=== PATIENT | male | born 1960 ===

== ENCOUNTER 2020-12-31 11:45 | Day surgery (SDC) | payer BC ==
[~2020-12-31 11:45] MED LIST: Acetaminophen 1,000 MG in Premix Bag 1 BAG IV ONE; Lactated Ringers 1,000 ML IV SCH; Pregabalin 75 MG Cap PO ONE; cefOXitin 2 GM in Premix Bag 1 BAG IV ONE
[2020-12-31] MEDS ORDERED: fentaNYL 100 MCG/2 ML SDV IVPUSH PRN (11:46)
[2020-12-31] MEDS ORDERED: Naloxone 0.4 MG/ML SDV IVPUSH PRN (11:46)
[2020-12-31] MEDS ORDERED: Morphine 2 MG/ML SYRINGE IVPUSH PRN (11:46)
[2020-12-31] MEDS ORDERED: Ondansetron 4 MG/2 ML SDV IVPUSH PRN (11:46)
[2020-12-31] MEDS ORDERED: Albuterol 0.083% 2.5 MG/3 ML Neb Soln NEB PRN (11:46)
[2020-12-31] MEDS ORDERED: Metoclopramide 10 MG/2 ML SDV IVPUSH PRN (11:46)
[2020-12-31] MEDS ORDERED: HYDROmorphone 1 MG/ML Syringe IVPUSH PRN (11:46)
[2020-12-31] MEDS ORDERED: Bupivacaine Liposome 1.3% 20 ML SDV ONE (12:00)
--- NOTE | 2020-12-31 12:31 | PCM.PREANE ---
Preanesthetic Assessment - Anesthesia/Transfusion/Family Hx Anesthesia History: Prior Anesthesia Without Reaction Other Type of Anesthesia Reaction Comment: Denies any known problem in past, Adopted no known family hx Family History of Anesthesia Reaction: No Transfusion History: Prior Transfusion Without Reaction - Review of Systems General: No Symptoms Pulmonary: No Symptoms Cardiovascular: No Symptoms Gastrointestinal: No Symptoms Neurological: No Symptoms Other: Reports: None - Physical Assessment NPO Status Date: 12/31/20 NPO Status Time: 08:00 Vital Signs: Last Vital Signs Temp 97.5 F 12/31/20 12:12 Pulse 70 12/31/20 12:12 Resp 16 12/31/20 12:12 BP 120/78 12/31/20 12:12 Pulse Ox 100 12/31/20 12:12 ASA Class: 3E Mental Status: Alert & Oriented x3 Airway Class: Mallampati = 1 Dentition: Reports: Broken Tooth/Teeth, Missing Tooth/Teeth Thyro-Mental Finger Breadths: 3 Mouth Opening Finger Breadths: 3 ROM/Head Extension: Full Lungs: Clear to Auscultation Cardiovascular: Regular Rate - Allergies Allergies/Adverse Reactions: Allergies Allergy/AdvReac Type Severity Reaction Status Date / Time ibuprofen [From Motrin] Allergy Cardiac Verified 03/29/15 13:56 Arrest - Blood Blood Available: No - Acknowledgements Anesthesia Type Planned: General Anesthesia Pt an Appropriate Candidate for the Planned Anesthesia: Yes Alternatives and Risks of Anesthesia Discussed w Pt/Guardian: Yes Pt/Guardian Understands and Agrees with Anesthesia Plan: Yes PreAnesthesia Questionnaire Other HEENT History: wears glasses Other Respiratory History: Reports 35 yr history of smoking, current use 1-2 pack per day Gastrointestinal History: Reports: Cholelithiasis, Colon Polyp, Hemorrhoids, Other (See Below) Other Gastrointestinal History: Gastric Lymphoma, INcisional hernia 2 month history, denies GERD Musculoskeletal History: Reports: Back Pain, Chronic, Fracture Other Musculoskeletal History: Low back pain, HX fracture 3rd Metacarpal Left hand Other Neuro History: Insomnia Oncologic (Cancer) History: Reports: Lymphoma Other Oncologic History: 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, gastric neoplasm, hx: hyperplastic colon polyp - Past Surgical History GI Surgical History: Reports: Colon, Colonoscopy, Polypectomy Other GI Surgeries/Procedures: states has had multiple abdominal surgeries, has hx of gastrectomy for gastric lymphoma Other Neurological Surgeries/Procedures: Low back surgery Oncologic Surgical History: Reports: Other (See Below) Other Oncologic Surgeries/Procedures: Partial gastrectomy, 85% gastrecotmy with primary anastomosis, Port-a-Cath Placement - HOME MEDS Home Medications: Home Meds Cyclobenzaprine [Flexeril] 1 tab PO ASDIRECTED 02/27/15 [History] Hydrocodone/Acetaminophen [Hydrocodone-Acetamin 10-325 mg] 1 tab PO ASDIRECTED 02/27/15 [History] Zolpidem Tartrate 1 tab PO BEDTIME 02/27/15 [History] oxyCODONE HCl/Acetaminophen [Percocet 10-325 mg Tablet] 1 tab PO ASDIRECTED 02/27/15 [History] traMADol [Ultram] 1 tab PO ASDIRECTED 02/27/15 [History] - CURRENT (IN HOUSE) MEDS Current Meds: Current Medications Albuterol (Albuterol 0.083% 2.5 Mg/3 Ml Neb Soln) 2.5 mg NEB ONETIME PRN PRN Reason: Wheezing Droperidol (Droperidol 5 Mg/2 Ml Sdv) 0.625 mg IVPUSH ONETIME PRN PRN Reason: Nausea/Vomiting Fentanyl (Fentanyl 100 Mcg/2 Ml Sdv) 50 mcg IVPUSH Q5M PRN PRN Reason: Pain (mild 1-3) Hydromorphone HCl (Hydromorphone 1 Mg/Ml Syringe) 1 mg IVPUSH Q10M PRN PRN Reason: Pain (moderate 4-6) Lactated Ringer's (Ringers, Lactated) 1,000 mls @ 125 mls/hr IV ASDIRECTED [facility] Last Admin: 12/31/20 11:59 Dose: 125 mls/hr Documented by: Metoclopramide HCl (Metoclopramide 10 Mg/2 Ml Sdv) 10 mg IVPUSH ONETIME PRN PRN Reason: Nausea/Vomiting Morphine Sulfate (Morphine 2 Mg/Ml Syringe) 2 mg IVPUSH Q10M PRN PRN Reason: Pain (severe 7-10) Naloxone HCl (Naloxone 0.4 Mg/Ml Sdv) 0.1 mg IVPUSH ASDIRECTED PRN PRN Reason: Respiratory Depression Ondansetron HCl (Ondansetron 4 Mg/2 Ml Sdv) 4 mg IVPUSH ONETIME PRN PRN Reason: Nausea/Vomiting Discontinued Medications Acetaminophen 1,000 mg/ Premix 100 mls @ 400 mls/hr IV ONCALL ONE Stop: 12/31/20 11:48 Last Admin: 12/31/20 12:01 Dose: 400 mls/hr Documented by: Cefoxitin Sodium 2 gm/ Premix 50 mls @ 100 mls/hr IV ONETIME ONE Stop: 12/31/20 12:03 Pregabalin (Pregabalin 75 Mg Cap) 150 mg PO ONETIME ONE Stop: 12/31/20 11:35 Last Admin: 12/31/20 11:59 Dose: 150 mg Documented by:
[2020-12-31] MEDS ORDERED: fentaNYL 250 MCG/5 ML SDV ONE (14:08)
[2020-12-31] MEDS ORDERED: Propofol 200 MG/20 ML SDV ONE (14:08)
[2020-12-31] MEDS ORDERED: Lidocaine 2% Jelly 30 ML Tube ONE (14:13)
[2020-12-31] MEDS ORDERED: HYDROmorphone 2 MG/ML Syringe ONE (14:28)
--- NOTE | 2020-12-31 14:32 | PCM.OPNOTE ---
- General Post-Op/Procedure Note Date of Surgery/Procedure: 12/31/20 Operative Procedure(s): Hemorrhoidectomy Findings: Prolapsed right hemorrhoid dictation number [id number] Pre Op Diagnosis: Hemorroid Post-Op Diagnosis: Prolapsed right hemorrhoid Anesthesia Technique: General ET Tube Primary Surgeon: Satnam Kaplan Pathology: hemorrhoid EBL in mLs: 5 Complications: None Condition: Good
--- NOTE | 2020-12-31 15:05 | PCM.POSTAN ---
POST ANESTHESIA ASSESSMENT - MENTAL STATUS Mental Status: Alert, Oriented - VITAL SIGNS Vital Signs: Last Vital Signs Temp 36.2 C 12/31/20 14:37 Pulse 80 12/31/20 14:57 Resp 15 12/31/20 14:57 BP 122/81 12/31/20 14:57 Pulse Ox 100 12/31/20 14:57 - RESPIRATORY Respiratory Status: Respiratory Rate WNL, Airway Patent, O2 Saturation Stable - CARDIOVASCULAR CV Status: Pulse Rate WNL, Blood Pressure Stable - GASTROINTESTINAL GI Status: No Symptoms - POST OP HYDRATION Hydration Status: Adequate & Stable
--- NOTE | 2020-12-31 15:17 | PCM48HPAN ---
Post Anesthesia Note - EVALUATION WITHIN 48HRS OF ANESTHETIC Vital Signs in Normal Range: Yes Patient Participated in Evaluation: Yes Respiratory Function Stable: Yes Airway Patent: Yes Cardiovascular Function Stable: Yes Hydration Status Stable: Yes Pain Control Satisfactory: Yes Nausea and Vomiting Control Satisfactory: Yes Mental Status Recovered: Yes Vital Signs: Last Vital Signs Temp 36.2 C 12/31/20 14:37 Pulse 80 12/31/20 14:57 Resp 15 12/31/20 14:57 BP 122/81 12/31/20 14:57 Pulse Ox 100 12/31/20 14:57
[2020-12-31 16:05] VITALS: BP 115/79; PULSE 76
--- NOTE | 2021-01-01 09:50 | OR ---
SURGEON: VIOLET IBARRA MD DATE OF PROCEDURE: 12/31/2020 PREOPERATIVE DIAGNOSIS: Hemorrhoid. POSTOPERATIVE DIAGNOSIS: Prolapsing right superior hemorrhoid. PROCEDURE PERFORMED: Hemorrhoidectomy and exam under anesthesia. ANESTHESIA: General. ESTIMATED BLOOD LOSS: 10 mL. PRIMARY SURGEON: Violet Ibarra MD SPECIMEN: Hemorrhoid. REASON FOR PROCEDURE: The patient is a pleasant 60-year-old gentleman who about a month ago had a hard bowel movement, had severe pain along with lot of bleeding. Did see him a couple of weeks ago. At that time, he had just some minimal hemorrhoidal skin tissue and had a bleeding likely from a fissure. He was given nifedipine ointment. The patient said this worked after a couple of days, and he was almost pain-free until late Wednesday this past week when all of a sudden he noticed a large mass recur. Vulcan like this was a golf ball with lots of pain and tenderness. He said the bleeding had stopped. The patient has a history of hemorrhoidectomy in the past. I went over with the patient again risks, goals, and alternatives of the procedure. Risks include, but not limited to, bleeding, infection, need for further more surgery, anal stenosis, injury to underlying structures such as sphincter muscle with incontinence of stool or flatus. The patient understands, wishes to proceed. We were able to get him to the OR the same day. The patient on examination did have a right prolapsing hemorrhoid in office, which was new from previous exam. OPERATIVE COURSE: The patient came over to the OR. Fecal occult test was negative. He was then prepped and draped in usual sterile fashion. He was placed in the prone position. Anesthesia was provided by the Anesthesia team. Time-out was performed. Digital rectal exam was performed. The patient again had a little external hemorrhoidal skin tissue on the left. Now, this appears to be more likely from his previous other hemorrhoidectomy. No active bleeding or fissure currently seen. On the patient's right more superior, the patient had a prolapsing hemorrhoid. 3-0 Vicryl was placed at the apex of the hemorrhoid. Now, Esmarch scalpel was used to remove the hemorrhoid, carefully pushing down between the hemorrhoid and the lower tissues to try to avoid any damage to underlying muscles. Hemorrhoid was removed in a more of a wedge- shaped fashion. Now, the 3-0 Vicryl sutured at the end of the hemorrhoid and the hemorrhoid was completely transected and removed. Now, the 3-0 Vicryl was used to close the mucosal defect. This was closed up to the dentate line. The remaining was left open. Again, there was no active bleeding going on. The anus seemed to have a good tone. Now, rest of the Exparel injected. Exparel was also injected before the surgery. Now, Gelfoam was packed in. At the end of the case, sponge and needle count was correct, and the patient was transferred to recovery room in stable condition. KATJA MELGAR /[id number]
== END 2020-12-31 15:30 | disposition home or self-care (01) ==
LOC: MW.SDS 11:45
PROVIDERS: ATTEND Surgery
DX: K64.8 Other hemorrhoids (principal); G89.29 Other chronic pain; N52.9 Male erectile dysfunction, unspecified; G47.30 Sleep apnea, unspecified; G47.00 Insomnia, unspecified; F17.200 Nicotine dependence, unspecified, uncomplicated; Z88.8 Allergy status to other drugs, medicaments and biological substances; Z79.899 Other long term (current) drug therapy; Z90.49 Acquired absence of other specified parts of digestive tract; Z98.890 Other specified postprocedural states
CPT/HCPCS: 46255; 88304; A9270; J0131; J1170; J2704; J3010; J7120; 00902

== ENCOUNTER 2021-03-29 16:41 | Emergency (ER) | payer BC ==
[2021-03-29] MEDS ORDERED: Acetaminophen/HYDROcodone 325-5 MG Tab PO ONE (16:59)
--- NOTE | 2021-03-29 17:02 | EDM.PDOC ---
ED HPI GENERAL MEDICAL PROBLEM - General Chief Complaint: Lower Extremity Injury/Pain Stated Complaint: left leg injury Time Seen by Provider: 03/29/21 16:49 Source of Information: Reports: Patient History Limitations: Reports: No Limitations - History of Present Illness INITIAL COMMENTS - FREE TEXT/NARRATIVE: HISTORY AND PHYSICAL: History of present illness: The patient is a 60-year-old male who presents to the emergency department with complaints of left lower lateral sinclair swelling and pain that started Wednesday evening. The only thing the patient can attribute this pain to his kicking his snow off his shoes on the side of his truck. The patient states that Wednesday the pain was so great that he had to leave work at 10 AM. The patient reports that his leg has been swollen but it is much less so after applying bags of snow to his leg prior to arrival. The patient has never had anything like this happen previously. Patient denies any fever, chills, headache, change in vision, syncope or near syncope. Denies any chest pain, back pain, shortness of breath or cough. Denies any abdominal pain, nausea, vomiting, diarrhea, constipation or dysuria. Has not noted any blood in urine or stool. Patient has been eating and drinking appropriately. Review of systems: As per history of present illness and below otherwise all systems reviewed and negative. Past medical history: As per history of present illness and as reviewed below otherwise noncontributory. Surgical history: As per history of present illness and as reviewed below otherwise noncontributory. Social history: See social history for further information Family history: As per history of present illness and as reviewed below otherwise noncontributory. Physical exam: General: Well developed and well nourished. Alert and orientated x 3. Nontoxic in appearance and in no acute distress. Vital signs are stable and have been reviewed by me. Nursing notes were reviewed. HEENT: Atraumatic, normocephalic, pupils equal and reactive bilaterally, negative for conjunctival pallor or scleral icterus, mucous membranes moist, TMs normal bilaterally, throat clear, neck supple, nontender, trachea midline. No drooling or trismus noted. No meningeal signs. No hot potato voice noted. Lungs: Clear to auscultation bilaterally. No wheezes, rales, or rhonchi. Chest nontender. Normal work of breathing, no accessory muscles used. Heart: S1S2, regular rate and rhythm without overt murmur, gallops, or rubs. No JVD. No peripheral edema Abdomen: Soft, nondistended, nontender. Normoactive bowel sounds. Negative for masses or costovertebral tenderness. Skin: Intact, warm, dry. No lesions or rashes noted. Hematologic: No petechiae or purpra. Mucosa appropriate color and normal nail bed color and refill. Extremities: Left lower leg with swelling and tender to touch on lateral side. Moves all extremities per self without difficulty or deficits, negative for cords or calf pain. Neurovascular unremarkable. Neuro: Awake, alert, oriented. Cranial nerves II through XII unremarkable. Cerebellum unremarkable. Motor and sensory unremarkable throughout. Exam nonfocal. Psychiatric: Mood and affect are appropriate. Normal thought process. Answering questions appropriately. Notes: *This patient was seen and evaluated during the 2019 SARS-CoV-2 novel coronavirus pandemic period. Community viral transmission is ongoing at time of this encounter and the emergency department is operating under pandemic response procedures. As stated above the patient is a 60-year-old male who presents to the emergency department with complaints of left lower sinclair pain after kicking the snow off of his truck. The patient is allergic to Motrin so I have Riverdale 325/5 for his pain. I will obtain an left lower leg x-ray. The patient is agreeable with this plan. Left lower leg x-ray IMPRESSION: Negative for acute fracture. I discussed the findings with the patient and talked with him about the swelling and tenderness for a possible blood clot. I talked to the patient regarding the possible need for blood thinner with a follow-up ultrasound on Wednesday. The patient declined stating he could not see how he would have gotten a blood clot. I attempted to educate the patient. The patient felt his pain was somewhat better. I will give the patient a work note for light duty at his request. If the patient requires over 3 days of light duty he needs to follow-up. I gave the patient detailed instructions of when he needs to return to the emergency department. I educated the patient on what to do if he feels like his pain was greater than his injury. The patient verbalized understanding and is agreeable with this discharge plan. I have talked with the patient about today's findings, in addition to providing specific details for plan of care. Reassessment at the time of disposition demonstrates that the patient is in no acute distress. The patient is stable for discharge, counseling was provided and we discussed in great detail signs and symptoms that would prompt them to return to the Emergency Department. Medication, follow up and supportive care measures were reviewed and discussed. Voices understanding and is agreeable to plan of care. Denies any further questions or concerns at this time. Diagnostics: Left lower leg x-ray Therapeutics: Riverdale 325/5 Impression: Contusion Plan: 1. You were evaluated today on an emergent basis. Your complaints of left lower leg swelling and pain was evaluated with an x-ray. I suggested a possible ablative type and possible blood thinner but a follow-up ultrasound which you declined. You most likely contused your left lower leg when you kicked your truck. If you are unable to control the pain or the pain seems more than it should be please return to the emergency department. If you start to have bluish tinge to your foot please return to the emergency department. If your leg starts to swell again please return to the emergency department. You were become short of breath you would need to return to the emergency department. I have given you a note for work for light duty for 3 days. If you require light duties past 3 days you need to have a follow-up. As you need further work-up. 2. You can alternate Tylenol and ibuprofen as needed for pain and fever management. 3. We encourage you to follow up with your primary care provider and/or recommended specialist in the next few days for re-evaluation and further care/management. 4. If your symptoms should worsen, new symptoms develop or any of the signs and symptoms we discussed should arise please return to the emergency room or call 911 (if needed). Definitive disposition and diagnosis as appropriate pending reevaluation and review of above. Left Leg Pain Score (Numeric/FACES): 10 - Related Data Allergies Allergy/AdvReac Type Severity Reaction Status Date / Time ibuprofen [From Motrin] Allergy Cardiac Verified 03/29/21 16:49 Arrest Home Meds: Home Meds traMADol [Ultram] 1 tab PO ASDIRECTED 02/27/15 [History] Past Medical History Other HEENT History: wears glasses Other Respiratory History: Reports 35 yr history of smoking, current use 1-2 pack per day Gastrointestinal History: Reports: Cholelithiasis, Colon Polyp, Hemorrhoids, Other (See Below) Other Gastrointestinal History: Gastric Lymphoma, INcisional hernia 2 month history, denies GERD Musculoskeletal History: Reports: Back Pain, Chronic, Fracture Other Musculoskeletal History: Low back pain, HX fracture 3rd Metacarpal Left hand Other Neuro History: Insomnia Oncologic (Cancer) History: Reports: Lymphoma Other Oncologic History: 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, gastric neoplasm, hx: hyperplastic colon polyp - Past Surgical History GI Surgical History: Reports: Colon, Colonoscopy, Polypectomy Other GI Surgeries/Procedures: states has had multiple abdominal surgeries, has hx of gastrectomy for gastric lymphoma Other Neurological Surgeries/Procedures: Low back surgery Oncologic Surgical History: Reports: Other (See Below) Other Oncologic Surgeries/Procedures: Partial gastrectomy, 85% gastrecotmy with primary anastomosis, Port-a-Cath Placement Review of Systems - Review of Systems Review Of Systems: Comprehensive ROS is negative, except as noted in HPI. ED EXAM, GENERAL - Physical Exam Exam: See Below (See dictation) Course - Vital Signs Last Recorded V/S: Last Vital Signs Temp 97.4 F 03/29/21 16:50 Pulse 71 03/29/21 17:56 Resp 16 03/29/21 17:56 BP 116/74 03/29/21 17:56 Pulse Ox 97 03/29/21 17:56 - Orders/Labs/Meds Meds: Medications Discontinued Medications Generic Name Dose Route Start Last Admin Trade Name Freq PRN Reason Stop Dose Admin Hydrocodone Bitart/Acetaminophen 1 tab 03/29/21 16:59 03/29/21 17:20 Acetaminophen/Hydrocodone 325-5 Mg Tab PO 03/29/21 17:00 1 tab ONETIME ONE Administration Departure - Departure Time of Disposition: 17:44 Disposition: Home, Self-Care 01 Condition: Good Clinical Impression: Contusion of leg, left Qualifiers: Encounter type: initial encounter Qualified Code(s): S80.12XA - Contusion of left lower leg, initial encounter - Discharge Information *PRESCRIPTION DRUG MONITORING PROGRAM REVIEWED*: Not Applicable *COPY OF PRESCRIPTION DRUG MONITORING REPORT IN PATIENT DEANGELO: Not Applicable Instructions: Contusion, [id number] Referrals: PCP,None [Primary Care Provider] - Forms: ED Department Discharge Additional Instructions: The following information is given to patients seen in the emergency department who are being discharged to home. This information is to outline your options for follow-up care. We provide all patients seen in our emergency department with a follow-up referral. The need for follow-up, as well as the timing and circumstances, are variable depending upon the specifics of your emergency department visit. If you don't have a primary care physician on staff, we will provide you with a referral. We always advise you to contact your personal physician following an emergency department visit to inform them of the circumstance of the visit and for follow-up with them and/or the need for any referrals to a consulting specialist. The emergency department will also refer you to a specialist when appropriate. This referral assures that you have the opportunity for follow-up care with a specialist. All of these measure are taken in an effort to provide you with optimal care, which includes your follow-up. Under all circumstances we always encourage you to contact your private physician who remains a resource for coordinating your care. When calling for follow-up care, please make the office aware that this follow-up is from your recent emergency room visit. If for any reason you are refused follow-up, please contact the [facility] Emergency Department at and asked to speak to the emergency department charge nurse. [facility] - Primary Care [address] [place] [address] [address] Plan: 1. You were evaluated today on an emergent basis. Your complaints of left lower leg swelling and pain was evaluated with an x-ray. I suggested a possible ablative type and possible blood thinner but a follow-up ultrasound which you declined. You most likely contused your left lower leg when you kicked your truck. If you are unable to control the pain or the pain seems more than it should be please return to the emergency department. If you start to have bluish tinge to your foot please return to the emergency department. If your leg starts to swell again please return to the emergency department. You were become short of breath you would need to return to the emergency department. I have given you a note for work for light duty for 3 days. If you require light duties past 3 days you need to have a follow-up. As you need further work-up. 2. You can alternate Tylenol and ibuprofen as needed for pain and fever management. 3. We encourage you to follow up with your primary care provider and/or recommended specialist in the next few days for re-evaluation and further care/management. 4. If your symptoms should worsen, new symptoms develop or any of the signs and symptoms we discussed should arise please return to the emergency room or call 911 (if needed). Sepsis Event Note (ED) - Evaluation Sepsis Screening Result: No Definite Risk - Focused Exam Vital Signs: Vital Signs Temp Pulse Resp BP Pulse Ox 03/29/21 17:56 71 16 116/74 97 03/29/21 16:50 97.4 F 74 17 118/66 97
--- NOTE | 2021-03-29 17:35 | CR ---
INDICATION: Left lower extremity pain TECHNIQUE: X-ray tibia/fibula, two views COMPARISON: None available FINDINGS: The tibia and fibula are intact. Negative for acute fracture. The overlying soft tissues are unremarkable. No radiopaque foreign body is seen. IMPRESSION: Negative for acute fracture. Dictated by Awa Mac MD @ 03/29/2021 5:33:49 PM (Electronically Signed)
[2021-03-29 17:56] VITALS: BP 116/74; PULSE 71
== END 2021-03-29 17:56 | disposition home or self-care (01) ==
LOC: MW.ED 16:41
DX: S80.12XA Contusion of left lower leg, initial encounter (principal); W22.8XXA Striking against or struck by other objects, initial encounter
CPT/HCPCS: 73590; 99283; A9270